=== PATIENT | male | born 1985 | race Hispanic/Latino ===

== ENCOUNTER 2017-01-24 15:21 | Emergency (ER) | payer SELFPAY ==
[2017-01-24 16:16] LABS: Basophils % (Auto) 0.8 % (0.0-1.8); Eosinophils % (Auto) 6.5 % (0.0-4.3); Hematocrit 45.5 % (35.5-45.6); Hemoglobin 15.4 gm/dl (11.8-15.2); Mean Corpuscular HGB Conc 34 % (32-34); Mean Corpuscular Hemoglobin 31 pg (28-32); Mean Corpuscular Volume 90 fl (84-94); Platelet Count 232 K/mm3 (140-440); Red Blood Count 5.07 M/mm3 (3.65-5.03); White Blood Count 10.1 K/mm3 (4.5-11.0)
[2017-01-24 16:38] LABS: Alanine Aminotransferase 32 units/L (7-56); Albumin 4.3 g/dL (3.9-5); Albumin/Globulin Ratio 1.9 %; Alkaline Phosphatase 109 units/L (35-129); Anion Gap 19 mmol/L; Blood Urea Nitrogen 10 mg/dL (9-20); Carbon Dioxide 24 mmol/L (22-30); Chloride 105.4 mmol/L (98-107); Glucose 97 mg/dL (75-100); Lipase 33 units/L (13-60); Sodium 144 mmol/L (137-145); Total Protein 6.6 g/dL (6.3-8.2)
[2017-01-24 17:03] LABS: Bilirubin,Urine NEG (Negative); Blood,Urine NEG (Negative); Ketones,Urine NEG (Negative); Leukocyte Esterase,Urine NEG (Negative); Mucus,Urine 1+ /HPF; Nitrite,Urine NEG (Negative); Protein,Urine <15 mg/dL mg/dL (Negative)
[2017-01-24] MEDS ORDERED: ALUM-MAG HYDROX-SIMETH 200-200-20MG/5ML PO ONE (20:30)
[2017-01-24] MEDS ORDERED: PEPCID PO ONE (20:30)
[2017-01-24] MEDS ORDERED: ZOFRAN ODT PO ONE (20:30)
[2017-01-24] MEDS ORDERED: BENTYL IM ONE (20:30)
--- NOTE | 2017-01-24 20:31 | Emergency Department Report ---
ED General Adult HPI - General Chief complaint: Abdominal Pain Stated complaint: RIGHT SIDE PAIN/VOMITING/LIGHTHEADEDNESS Time Seen by Provider: 01/24/17 20:21 Source: patient, RN notes reviewed Mode of arrival: Ambulatory Limitations: No Limitations - History of Present Illness Initial comments: This is a 31-year-old male. He is previously unknown to me. He presents to the ER with epigastric and right upper quadrant pain. This has been present since 3 in the morning. It does not radiate to the back, arms or neck. He endorses a few episodes of nonbloody, nonbilious emesis. He thinks he has a history of GERD/reflux. He admits to eating heavily and spicy foods yesterday. There is no chest pain or shortness of breath. There is no leg pain. There is no leg swelling. no recent trips greater than 4 hours. No recent hospital admissions. The patient is achy, and increases with palpation, and decreases with rest. It does not radiate anywhere. -: Gradual Location: abdomen Quality: aching Consistency: intermittent Improves with: rest Worsens with: eating Associated Symptoms: nausea/vomiting, other (patient does complain of near syncope. However there is no actual syncope. There is no loss of consciousness.). denies: confusion, chest pain, cough, diaphoresis, fever/ chills, shortness of breath - Related Data Home Medications Medication Instructions Recorded Confirmed Last Taken Ranitidine HCl [Zantac 150 MG TAB] 150 mg PO DAILY 01/24/17 01/24/17 Unknown Previous Rx's Medication Instructions Recorded Last Taken Type Dicyclomine [Bentyl] 10 mg PO QID PRN #20 capsule 01/24/17 Unknown Rx Famotidine [Pepcid] 20 mg PO QDAY #30 tablet 01/24/17 Unknown Rx Ondansetron [Zofran Odt] 4 mg PO QID PRN #20 tab.rapdis 01/24/17 Unknown Rx Sucralfate [Carafate] 1 gm PO Q6HR #60 tablet 01/24/17 Unknown Rx Allergies Allergy/AdvReac Type Severity Reaction Status Date / Time ketorolac tromethamine Allergy Hives Verified 04/30/15 07:21 [From Toradol] tramadol Allergy Hives Verified 04/30/15 07:21 ED Review of Systems ROS: Stated complaint: RIGHT SIDE PAIN/VOMITING/LIGHTHEADEDNESS Other details as noted in HPI ED Past Medical Hx - Past Medical History Previous Medical History?: Yes Hx GERD: Yes - Surgical History Past Surgical History?: No - Social History Smoking Status: Current Every Day Smoker Substance Use Type: None - Medications Home Medications: Home Medications Medication Instructions Recorded Confirmed Last Taken Type Dicyclomine [Bentyl] 10 mg PO QID PRN #20 capsule 01/24/17 Unknown Rx Famotidine [Pepcid] 20 mg PO QDAY #30 tablet 01/24/17 Unknown Rx Ondansetron [Zofran Odt] 4 mg PO QID PRN #20 tab.rapdis 01/24/17 Unknown Rx Ranitidine HCl [Zantac 150 MG TAB] 150 mg PO DAILY 01/24/17 01/24/17 Unknown History Sucralfate [Carafate] 1 gm PO Q6HR #60 tablet 01/24/17 Unknown Rx ED Physical Exam - General Limitations: No Limitations General appearance: alert, in no apparent distress - Head Head exam: Present: atraumatic, normocephalic - Eye Eye exam: Present: normal appearance, EOMI. Absent: nystagmus - ENT ENT exam: Present: normal exam, normal orophraynx, mucous membranes moist, normal external ear exam - Neck Neck exam: Present: normal inspection, full ROM. Absent: tenderness, meningismus - Respiratory Respiratory exam: Present: normal lung sounds bilaterally. Absent: respiratory distress, wheezes, rales, rhonchi, stridor, chest wall tenderness, accessory muscle use, decreased breath sounds, prolonged expiratory - Cardiovascular Cardiovascular Exam: Present: regular rate, normal rhythm, normal heart sounds. Absent: bradycardia, tachycardia, irregular rhythm, systolic murmur, diastolic murmur, rubs, gallop - GI/Abdominal GI/Abdominal exam: Present: soft, tenderness, normal bowel sounds, other (there is minimal epigastric and right upper quadrant tenderness. There is no rebound , guarding or peritoneal signs. There is a negative Lovell sign. There is negative Rovsing sign.). Absent: distended, guarding, rebound, rigid, pulsatile mass - Rectal Rectal exam: Present: deferred - Extremities Exam Extremities exam: Present: normal inspection, full ROM, normal capillary refill. Absent: pedal edema, joint swelling, calf tenderness - Back Exam Back exam: Present: normal inspection, full ROM. Absent: tenderness, CVA tenderness (R), CVA tenderness (L), muscle spasm, paraspinal tenderness, vertebral tenderness - Neurological Exam Neurological exam: Present: alert (visual acuity intact to finger counting, color perception, reading a close distance, there is no visual field cut under a confrontation), oriented X3, normal gait (normal gait, normal tandem gait, negative pronator drift, negative Romberg examination, normal dmco-za-sute.), other (Extraocular movements intact. Tongue midline. No facial droop. Facial sensation intact to light touch in the V1, V2, V3 distribution bilaterally. 5 and 5 strength in 4 extremities.. Sensation is intact to light touch in 4 extremities.). Absent: motor sensory deficit - Psychiatric Psychiatric exam: Present: anxious - Skin Skin exam: Present: warm, dry, intact, normal color. Absent: rash ED Course Vital Signs 01/24/17 01/24/17 01/24/17 15:46 19:30 19:41 Temperature 98.4 F Pulse Rate 81 Respiratory 18 Rate Blood Pressure 114/72 106/62 106/62 Blood Pressure [Left] O2 Sat by Pulse 99 100 Oximetry 01/24/17 01/24/17 01/24/17 19:48 19:51 19:53 Temperature 98.7 F Pulse Rate 83 Respiratory 20 20 Rate Blood Pressure 106/62 Blood Pressure 106/62 [Left] O2 Sat by Pulse 100 99 Oximetry 01/24/17 01/24/17 01/24/17 20:00 20:11 20:25 Temperature Pulse Rate Respiratory Rate Blood Pressure 101/63 101/63 106/62 Blood Pressure [Left] O2 Sat by Pulse 99 99 100 Oximetry 01/24/17 01/24/17 01/24/17 20:31 20:41 20:51 Temperature Pulse Rate Respiratory Rate Blood Pressure 106/62 106/62 101/63 Blood Pressure [Left] O2 Sat by Pulse 98 99 100 Oximetry 01/24/17 01/24/17 01/24/17 21:43 21:50 22:08 Temperature 97.9 F Pulse Rate Respiratory Rate Blood Pressure 101/63 101/63 Blood Pressure [Left] O2 Sat by Pulse 100 99 Oximetry - Reevaluation(s) Reevaluation #1: 01/24/17 21:53 Differential diagnosis: GERD, gastritis, reflux, pancreatitis, biliary colic, orthostasis Assessment and plan: 31-year-old male with epigastric and right upper quadrant discomfort. He is afebrile with reassuring vital signs. He has a negative Lovell sign. He has no pulmonary embolus or DVT risk factors, he is low risk by well's criteria, he is perc negative. X-ray of the chest was negative. Right upper quadrant ultrasound was negative for acute disease. Nonspecific biliary sludge was noted, but given normal laboratory studies, lack of fever, ability to tolerate liquid feeds, my suspicion for acalculous cholecystitis is very low. The patient can follow up with gastroenterology, for primary care or general surgery for this. Laboratory studies were unremarkable , not suggestive of hepatitis or pancreatitis. The patient has a GCS of 15, with an NIH score of 0, walks with a steady gait, has no cerebellar signs, low risk by PORTIA score, low risk by heart score, normal EKG. At this point in time, it does not appear that there is any emergent condition that would require hospitalization. The patient feels improved. He will be discharged pain medication, nausea medication, instructions to follow up with either outpatient primary care or gastroenterology. 01/24/17 21:58 01/24/17 22:01 01/24/17 22:55 ED Medical Decision Making - Lab Data Result diagrams: 01/24/17 15:58 01/24/17 15:58 Vital Signs 01/24/17 01/24/17 01/24/17 15:46 19:48 19:53 Temperature 98.4 F 98.7 F Pulse Rate 81 83 Respiratory 18 20 20 Rate Blood Pressure 114/72 Blood Pressure 106/62 [Left] O2 Sat by Pulse 99 100 Oximetry Lab Results 01/24/17 01/24/17 01/24/17 Range/Units 15:58 15:58 16:47 WBC 10.1 (4.5-11.0) K/mm3 RBC 5.07 H (3.65-5.03) M/mm3 Hgb 15.4 H (11.8-15.2) gm/dl Hct 45.5 (35.5-45.6) % MCV 90 (84-94) fl MCH 31 (28-32) pg MCHC 34 (32-34) % RDW 14.0 (13.2-15.2) % Plt Count 232 (140-440) K/mm3 Lymph % (Auto) 27.4 (13.4-35.0) % Haskell % (Auto) 6.8 (0.0-7.3) % Eos % (Auto) 6.5 H (0.0-4.3) % Baso % (Auto) 0.8 (0.0-1.8) % Lymph # 2.8 (1.2-5.4) K/mm3 Haskell # 0.7 (0.0-0.8) K/mm3 Eos # 0.7 H (0.0-0.4) K/mm3 Baso # 0.1 (0.0-0.1) K/mm3 Seg Neutrophils % 58.5 (40.0-70.0) % Seg Neutrophils # 5.9 (1.8-7.7) K/mm3 Sodium 144 (137-145) mmol/L Potassium 4.0 (3.6-5.0) mmol/L Chloride 105.4 (98-107) mmol/L Carbon Dioxide 24 (22-30) mmol/L Anion Gap 19 mmol/L BUN 10 (9-20) mg/dL Creatinine 0.8 (0.8-1.5) mg/dL Estimated GFR > 60 ml/min BUN/Creatinine Ratio 12.50 % Glucose 97 (75-100) mg/dL Calcium 9.0 (8.4-10.2) mg/dL Total Bilirubin 0.30 (0.1-1.2) mg/dL AST 23 (5-40) units/L ALT 32 (7-56) units/L Alkaline Phosphatase 109 (35-129) units/L Total Protein 6.6 (6.3-8.2) g/dL Albumin 4.3 (3.9-5) g/dL Albumin/Globulin Ratio 1.9 % Lipase 33 (13-60) units/L Urine Color Yellow (Yellow) Urine Turbidity Clear (Clear) Urine pH 5.0 (5.0-7.0) Ur Specific [place] 1.025 (1.003-1.030) Urine Protein <15 mg/dl (Negative) mg/dL Urine Glucose (UA) Neg (Negative) mg/dL Urine Ketones Neg (Negative) mg/dL Urine Blood Neg (Negative) Urine Nitrite Neg (Negative) Urine Bilirubin Neg (Negative) Urine Urobilinogen 2.0 (<2.0) mg/dL Ur Leukocyte Esterase Neg (Negative) Urine WBC (Auto) 3.0 (0.0-6.0) /HPF Urine RBC (Auto) 4.0 (0.0-6.0) /HPF U Epithel Cells (Auto) < 1.0 (0-13.0) /HPF Urine Mucus 1+ /HPF - EKG Data -: EKG Interpreted by Nv EKG shows normal: sinus rhythm, axis, intervals, QRS complexes, ST-T waves Rate: normal - EKG Data When compared to previous EKG there are: previous EKG unavailable Interpretation: normal EKG - Radiology Data Radiology results: report reviewed, image reviewed X-ray the chest is negative. Right upper quadrant ultrasound negative for cholecystitis Layering biliary sludge is noted on multiple images. There is no intra- articular as sharp hepatic biliary ductal dilatation. Gallbladder wall is within normal limits, there is no pericholecystic edema. Impression: Suggested layering biliary sludge without additional findings of acute cholecystitis. Critical care attestation.: If time is entered above; I have spent that time in minutes in the direct care of this critically ill patient, excluding procedure time. ED Disposition Clinical Impression: Abdominal pain Disposition: DISCHARGED TO HOME OR SELFCARE Is pt being admited?: No Does the pt Need Aspirin: No Condition: Stable Instructions: Diet for Ulcers and Gastritis (ED), Esophageal Spasm (ED) Additional Instructions: Avoid heavy and spicy foods. Take the medications as directed. Follow up with either primary care or gastroenterology within the next 7-[address] Faustino Vega is a local primary care doctor. Dr. Vitale is a local digester operator helper. Return to the ER right away with new pain, worsened pain, migration of pain, fevers or chills, intractable nausea or vomiting, inability to tolerate liquid feeds. The right upper quadrant ultrasound did not demonstrate evidence of biliary stones, but nonspecific sludge is noted in the gallbladder. Follow-up with other gastroenterology, primary care, with a listed general surgeon for this within the next 7-10 days. Prescriptions: Dicyclomine [Bentyl] 10 mg PO QID PRN #20 capsule PRN Reason: Pain Famotidine [Pepcid] 20 mg PO QDAY #30 tablet Ondansetron [Zofran Odt] 4 mg PO QID PRN #20 tab.rapdis PRN Reason: Nausea Sucralfate [Carafate] 1 gm PO Q6HR #60 tablet Referrals: DOMINIQUE VITALE MD [Staff Physician] - 3-5 Days [facility], [Primary Care Provider] - 3-5 Days FAUSTINO VEGA MD [Staff Physician] - 3-5 Days GIGI SAUNDERS MD [Staff Physician] - 3-5 Days
[2017-01-24] MEDS ORDERED: CARAFATE PO ONE (20:45)
[2017-01-24 22:07] VITALS: BP 101/63
--- NOTE | 2017-01-24 22:51 | Ultrasound Report ---
FINAL REPORT EXAM: US ABDOMEN LIMITED HISTORY: ruq pain ? biliary colic COMPARISONS: None FINDINGS: Grayscale and color Doppler ultrasound evaluation of the right upper abdomen Suboptimal evaluation of the liver secondary to overlying bowel gas. No intra or extrahepatic biliary ductal dilatation. The common duct measures approximately 3-4 millimeters in caliber. Liver size and contour appear within normal limits. Layering biliary sludge is suggested on multiple images. No echogenic shadowing stones are seen. Gallbladder wall measures approximately 1-2 millimeters. No pericholecystic edema. The pancreas is not well seen secondary to overlying bowel gas. No abdominal ascites or free fluid in Morison's pouch. The right kidney measures up to 10.3 cm in length and is without hydronephrosis or echogenic shadowing foci to suggest nephrolithiasis. IMPRESSION: Suggested layering biliary sludge without additional findings of acute cholecystitis. Consider nuclear medicine hepatobiliary scan for more specific evaluation as warranted.
--- NOTE | 2017-01-25 07:18 | XRay Report ---
ROUTINE CHEST, TWO VIEWS: HISTORY: chest pain. The trachea, heart, mediastinal contour, lung hector and bony thorax are unremarkable. IMPRESSION: Unremarkable chest x-ray.
== END 2017-01-25 01:00 | disposition home or self-care (01) ==
LOC: ED 15:21
DX: R10.13 Epigastric pain (principal); R10.11 Right upper quadrant pain; K21.9 Gastro-esophageal reflux disease without esophagitis; F17.200 Nicotine dependence, unspecified, uncomplicated; Z88.8 Allergy status to other drugs, medicaments and biological substances
CPT/HCPCS: 36415; 71020; 76705; 80053; 81001; 83690; 85025; 93005; 93010; 96372; 99284; J0500; Q0162

== ENCOUNTER 2021-11-18 08:36 | Emergency (ER) | payer SELFPAY ==
--- NOTE | 2021-11-18 08:47 | Emergency Department Report ---
ED Psych HPI - General Stated Complaint: SUCIDAL IDEATIONS Time Seen by Provider: 11/18/21 08:43 - History of Present Illness Initial Comments: Patient presents by EMS with suicidal ideation. He states that he just found out that his fianc was cheating on him. Last night, he decided that he was just tired of it. While on video chat with his exfianc, he tied a belt around his neck and attempted to hang himself. He tried to tie the belt around the shower jaimee, but realized that he was too tall. He could not jump or even inflict injury on himself. He went to bed after that. This morning, he got up and called for help. Patient has since been told that his kids need him by his family and EMS. He is very upset that he tried to kill himself, but states that he just does not know what to do and needs help. He is not hearing voices telling him to harm himself or anyone else. He has never attempted suicide or thought about suicide before. There is no family history of suicide completion. - Related Data Home Medications Medication Instructions Recorded Confirmed Last Taken No Known Home Medications [No 11/18/21 11/18/21 Unknown Reported Home Medications] Allergies Allergy/AdvReac Type Severity Reaction Status Date / Time ketorolac tromethamine Allergy Hives Verified 11/18/21 08:38 [From Toradol] tramadol Allergy Hives Verified 11/18/21 08:38 ED Review of Systems ROS: Stated complaint: SUCIDAL IDEATIONS Other details as noted in HPI Comment: All other systems reviewed and negative Constitutional: denies: fever Eyes: denies: vision change ENT: denies: throat pain Respiratory: denies: cough Cardiovascular: denies: chest pain Endocrine: denies: unexplained weight loss Gastrointestinal: denies: abdominal pain Genitourinary: denies: dysuria Musculoskeletal: denies: back pain Skin: denies: rash Neurological: denies: headache Psychiatric: as per HPI Hematological/Lymphatic: denies: easy bruising ED Past Medical Hx - Past Medical History Hx GERD: Yes - Family History Family history: other (No family history of suicide completion) - Social History Smoking Status: Current Every Day Smoker (We discussed tobacco cessation) Substance Use Type: None - Medications Home Medications: Home Medications Medication Instructions Recorded Confirmed Last Taken Type No Known Home Medications [No 11/18/21 11/18/21 Unknown History Reported Home Medications] ED Physical Exam - General Limitations: No Limitations, Other (Pulse ox noted and normal) General appearance: alert, in no apparent distress - Head Head exam: Present: atraumatic, normocephalic - Eye Eye exam: Present: normal appearance, PERRL, EOMI. Absent: scleral icterus - ENT ENT exam: Present: normal orophraynx, normal external ear exam - Neck Neck exam: Present: normal inspection, other (No ligature joe noted). Absent: tenderness, meningismus - Respiratory Respiratory exam: Present: normal lung sounds bilaterally. Absent: respiratory distress - Cardiovascular Cardiovascular Exam: Present: normal rhythm, tachycardia - GI/Abdominal GI/Abdominal exam: Present: soft. Absent: distended, tenderness - Extremities Exam Extremities exam: Present: normal capillary refill - Back Exam Back exam: Absent: CVA tenderness (R), CVA tenderness (L) - Neurological Exam Neurological exam: Present: alert, oriented X3, CN II-XII intact, normal gait. Absent: motor sensory deficit - Psychiatric Psychiatric exam: Present: depressed, other (Tearful) - Skin Skin exam: Present: warm, dry ED Course Vital Signs 11/18/21 08:38 Temperature 98.1 F Pulse Rate 126 H Respiratory 18 Rate Blood Pressure 124/82 O2 Sat by Pulse 100 Oximetry - Reevaluation(s) Reevaluation #1: 11/18/21 08:45 EMS was met upon arrival. Patient was placed on a 1013. Orders were placed. Old records noted. Reevaluation #2: 11/18/21 12:46 Labs have been noted. Patient is medically cleared. We are still awaiting psychiatric evaluation and disposition. Reevaluation #3: 11/18/21 13:21 Psychiatric services has seen the patient. They are recommending admission and transfer for psychiatric services. We will await accepting facility. ED Medical Decision Making - Lab Data Result diagrams: 11/18/21 09:02 11/18/21 09:02 - Medical Decision Making Patient presents with suicidal thoughts due to situational depression. He actually had a gesture and that he tied a belt around his neck. There was no actual hanging. He states that he was too tall to use the curtain jaimee. Patient sought medical help. He is actively suicidal at this time. Patient has been medically cleared and will be transferred once a psychiatric receiving facility is available. There is no evidence of acute delusion. He is not hearing voices. There is no evidence of psychosis. There is no evidence of metabolic or thyroid disorder. Critical Care Time: No Critical care attestation.: If time is entered above; I have spent that time in minutes in the direct care of this critically ill patient, excluding procedure time. ED Disposition Clinical Impression: Suicidal ideation, Situational depression Disposition: 30 STILL A PATIENT Is pt being admited?: No Condition: Stable Additional Instructions: Professional and Agency Contacts To help Resolve Crises (08/04) [place] Crisis [place]: Suicide Prevention Line: Crisis Text Line: Text START to 495619 Emergency: 911 Outpatient COMMUNITY Behavioral Health Resources: [facility]: [facility] [address], [place] [address] [facility] [address] [place] [address] Saturday thru Saturday - 8am - 5pm Call to schedule an assessment for mental health and substance abuse programs [facility] Address: [address] [place] [address] Saturday thru Saturday- 7am-2pm [facility] Address: [address] [place] [address] Saturday thru Saturday: 8:30AM-5PM Referrals: PRIMARY MD ANGY [Primary Care Provider] - 3-5 Days
[2021-11-18 09:24] LABS: Basophils # (Auto) 0.1 K/mm3 (0.0-0.1); Basophils % (Auto) 0.7 % (0.0-1.8); Eosinophils # (Auto) 0.1 K/mm3 (0.0-0.4); Eosinophils % (Auto) 0.5 % (0.0-4.3); Hematocrit 46.6 % (35.5-45.6); Hemoglobin 15.9 gm/dl (11.8-15.2); Lymphocytes # (Auto) 2.3 K/mm3 (1.2-5.4); Lymphocytes % (Auto) 15.6 % (13.4-35.0); Mean Corpuscular HGB Conc 34 % (32-34); Mean Corpuscular Volume 89 fl (84-94); Platelet Count 283 K/mm3 (140-440); Red Blood Count 5.24 M/mm3 (3.65-5.03); Red Cell Distribution Width 14.2 % (13.2-15.2)
[2021-11-18 09:48] LABS: Alanine Aminotransferase 57 units/L (7-56); Albumin 4.6 g/dL (3.9-5); BUN/Creatinine Ratio 11; Blood Urea Nitrogen 9 mg/dL (9-20); Calcium 9.6 mg/dL (8.4-10.2); Hemolysis Index 8
--- NOTE | 2021-11-18 12:57 | Consultation ---
History of Present Illness - Reason for Consult Consult date: 11/18/21 Reason for consult: Suicidal attempt - History of Present Psychiatric Illness The patient was seen today. He is a/o x 3. He is calm, cooperative and pleasant. The patient is telling conflicting stories from what he initially told upon presenting to the ER. He says his fiance was cheating, but he states he never told anybody he wanted to or was trying to kill himself. He says "that's something my mother in law said." The patient then comes, back and says, "I came here because I didn't know what to do. I was trying to prevent something bad from happening." He denies SI/HI at present. He also denies hallucinations. The patient denies any past psych history. He says "I just want to go to [place] to my family away from her. 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 Cooperation: Participating/engaged Psychomotor Behavior: unremarkable and within normal limits Mood: better Affect and affective range: congruent with mood Thought Process: goal directed Thought Content: None Speech: Normal volume, Regular rate and rhythm Suicidal Ideation: Passive Homicidal Ideation: Denies Hallucinations: Denies Impulse Control: Limited Insight and Judgment: Limited insight and good judgment Memory: Limited Attention: Attentive Orientation: Alert, oriented x 3 Assessment and Plan (1) Mood Disorder, Unspecified RECOMMENDATIONS 1013 Vistaril 50mg po BID Trazodone 50mg po qhs Agree with [place] Risks, benefits and alternatives of medications discussed with the patient, questions answered and consent obtained from patient. PSYCHOTHERAPY: Supportive psychotherapy provided MEDICAL: Per primary team DELIRIUM PRECAUTIONS: Please re-orient patient frequently, keep lights on during the day, and minimize benzodiazepines and opiates as these medications could worsen patient's confusion. 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 FOLLOW-UP: Will follow Thank you for the consult. Please contact Medications and Allergies Allergies Allergy/AdvReac Type Severity Reaction Status Date / Time ketorolac tromethamine Allergy Hives Verified 11/18/21 08:38 [From Toradol] tramadol Allergy Hives Verified 11/18/21 08:38 Home Medications Medication Instructions Recorded Confirmed Last Taken Type No Known Home Medications [No 11/18/21 11/18/21 Unknown History Reported Home Medications] Mental Status Exam - Vital signs Last Vital Signs Temp 98.1 F 11/18/21 08:38 Pulse 126 H 11/18/21 08:38 Resp 18 11/18/21 08:38 BP 124/82 11/18/21 08:38 Pulse Ox 100 11/18/21 08:38 Results Result Diagrams: 11/18/21 09:02 11/18/21 09:02 Abnormal lab results 11/18/21 11/18/21 11/18/21 Range/Units 09:02 09:02 09:02 WBC 14.6 H (4.5-11.0) K/mm3 RBC 5.24 H (3.65-5.03) M/mm3 Hgb 15.9 H (11.8-15.2) gm/dl Hct 46.6 H (35.5-45.6) % [place] # (Auto) 1.0 H (0.0-0.8) K/mm3 Seg Neutrophils % 76.2 H (40.0-70.0) % Seg Neutrophils # 11.1 H (1.8-7.7) K/mm3 Glucose 107 H (75-100) mg/dL ALT 57 H (7-56) units/L Alkaline Phosphatase 159 H (35-129) units/L Salicylates < 0.3 L (2.8-20.0) mg/dL Acetaminophen (10.0-30.0) ug/mL 11/18/21 Range/Units 09:02 WBC (4.5-11.0) K/mm3 RBC (3.65-5.03) M/mm3 Hgb (11.8-15.2) gm/dl Hct (35.5-45.6) % [place] # (Auto) (0.0-0.8) K/mm3 Seg Neutrophils % (40.0-70.0) % Seg Neutrophils # (1.8-7.7) K/mm3 Glucose (75-100) mg/dL ALT (7-56) units/L Alkaline Phosphatase (35-129) units/L Salicylates (2.8-20.0) mg/dL Acetaminophen 5.0 L (10.0-30.0) ug/mL All other labs normal.
[2021-11-18 15:37] LABS: Amphetamine Screen,Urine Negative; Benzodiazepines Screen,Urine Negative; Cannabinoid Screen,Urine Negative; Cocaine Screen,Urine Negative; Methadone Screen,Urine Negative; Opiate Screen,Urine Negative
[2021-11-18] MEDS ORDERED: traZODone 50 MG TAB PO SCH (22:00)
[2021-11-19 07:22] LABS: Mean Corpuscular HGB Conc 36 % (32-34); Mean Corpuscular Volume 90 fl (84-94); Platelet Count 257 K/mm3 (140-440); Red Blood Count 4.98 M/mm3 (3.65-5.03); Red Cell Distribution Width 14.3 % (13.2-15.2)
[2021-11-19 07:36] LABS: Hematocrit 44.7 % (35.5-45.6)
--- NOTE | 2021-11-19 08:41 | Emergency Department Report ---
Blank Doc - Documentation Documentation: Patient feels better this morning. He is resting. He is not suicidal or homi cidal. Patient states that he feels markedly better. He is hoping that we will release him today. He is medically cleared. We are awaiting psychiatric evaluation and disposition.
--- NOTE | 2021-11-19 09:41 | Progress Note ---
Subjective - Reason for Consult Consult date: 11/19/21 Reason for consult: SI - Chief Complaint Chief complaint: The patient was seen today. He is calm, cooperative and pleasant. The patient verbalizes feeling good. He denies SI/HI. He says "I'm not going to do anything to myself or anybody. I told you this yesterday." He says he's going to [place] away from his fiance. He says "I'm going around people who love me." He says "I told you, I have three kids who need me and I need them." He denies hallucinations of any kind. REVIEW OF SYSTEMS Constitutional: Negative for weight loss ENT: Negative for stridor Respiratory: Negative for cough or hemoptysis All other systems reviewed and are negative MENTAL STATUS EXAMINATION General Appearance and Behavior: Age appropriate, good hygiene, wearing a ppropriate clothes, good eye contact, cooperative polite with questioning. Cooperation: Participating/engaged Psychomotor Behavior: unremarkable and within normal limits Mood: good Affect and affective range: congruent with mood Thought Process: goal directed Thought Content: None Speech: Normal volume, Regular rate and rhythm Suicidal Ideation: Denies Homicidal Ideation: Denies Hallucinations: Denies Impulse Control: Limited Insight and Judgment: Limited insight and good judgment Memory: Limited Attention: Attentive Orientation: Alert, oriented x 3 Assessment and Plan (1) Mood Disorder, Unspecified RECOMMENDATIONS d/c 1013 Vistaril 50mg po BID Trazodone 50mg po qhs Risks, benefits and alternatives of medications discussed with the patient, questions answered and consent obtained from patient. PSYCHOTHERAPY: Supportive psychotherapy provided MEDICAL: Per primary team DELIRIUM PRECAUTIONS: Please re-orient patient frequently, keep lights on during the day, and minimize benzodiazepines and opiates as these medications could worsen patient's confusion. 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 He was advised that if SI/HI arise, he is to seek immediate assistance. Silverware Supervisor to further discuss safety plan and give all necessary outpatient resources. The patient to follow up with outpatient psych in 7 to 14 days upon discharge. FOLLOW-UP: Will sing off. Thank you for the consult. Please contact Case staffed with Dr. Adidson Mental Status Exam - Vital signs Last Vital Signs Temp 98.3 F 11/19/21 03:30 Pulse 98 H 11/19/21 03:30 Resp 18 11/19/21 03:30 BP 126/81 11/19/21 03:30 Pulse Ox 100 11/19/21 03:30
[2021-11-19 12:14] VITALS: BP 142/91
== END 2021-11-19 12:14 | disposition home or self-care (01) ==
LOC: ED 08:36
DX: R45.851 Suicidal ideations (principal); F32.9 Major depressive disorder, single episode, unspecified; K21.9 Gastro-esophageal reflux disease without esophagitis; Z20.822 Contact with and (suspected) exposure to COVID-19; F17.200 Nicotine dependence, unspecified, uncomplicated; Z88.6 Allergy status to analgesic agent; Z88.5 Allergy status to narcotic agent; Z79.899 Other long term (current) drug therapy
CPT/HCPCS: 36415; 80053; 80307; 84443; 85025; 85027; 99285; Q0177; U0003; 80320; G0480